=== PATIENT | male | born 1970 | race Caucasian/White ===

== ENCOUNTER 2018-02-04 08:36 | Emergency (ER) | payer BC ==
--- NOTE | 2018-02-04 09:00 | UC ---
General HPI - HPI Summary HPI Summary: This is chester Briceno documenting for attending Johnathan Rodriguez . This patient is a 47 year old M presenting to [facility] accompanied by his after his vein spasmed which caused him to become dizzy and diaphoretic. Pt states he was working on a watch when he got a spasm in his forearm near the antecubital fossa which caused his vein to swell. The patient rates the pain 0/ 10 in severity. Patient reports nausea and pallor. Patient denies CP and syncope. Pt states that he lost his peripheral vison and needed to sit down. All these sx resolved shortly after sitting down. Pt just returned from [place] and was [place] which has made his concerned that this could have effected him. She is also concerned for his heart because of the high stress environment he works in. - History of Current Complaint Chief Complaint: UCGeneralIllness Stated Complaint: ARM PAIN DIZZY Hx Obtained From: Patient Onset/Duration: Lasting Minutes, Resolved Timing: Intermittent Episodes Lasting: - a few minutes Onset Severity: Severe Current Severity: None Pain Intensity: 0 Associated Signs & Symptoms: Positive: Other - dizziness, diaphoreisis, and nausea - Allergy/Home Medications Allergies/Adverse Reactions: Allergies Allergy/AdvReac Type Severity Reaction Status Date / Time No Known Allergies Allergy Verified 02/04/18 08:49 PMH/Surg Hx/FS Hx/Imm Hx Previously Healthy: Yes Other History Of: Negative For: HIV, Anticoagulant Therapy - Surgical History Surgical History: None - Family History Known Family History: Negative: Diabetes, Blood Disorder - Social History Occupation: Employed Full-time - [employer] Lives: With Family - Alcohol Use: Weekly Alcohol Amount: once Substance Use Type: None Smoking Status (MU): Never Smoked Tobacco Type: eCigarettes Have You Smoked in the Last Year: No - Immunization History Most Recent Tetanus Shot: not certain Review of Systems Constitutional: Other - diaphoretic. Skin: Other - pallor Cardiovascular: Other - "vein swelling"- per patient Gastrointestinal: Nausea Musculoskeletal: Other: - muscle spasm Neurological: Other - dizziness All Other Systems Reviewed And Are Negative: Yes Physical Exam - Summary Physical Exam Summary: General: well-appearing, no pain distress Skin: warm, color reflects adequate perfusion, dry Head: normal Eyes: EOMI, COREY ENT: normal Neck: supple, nontender Respiratory: CTA, breath sounds present Cardiovascular: RRR Abdomen: soft, nontender Bowel: present Musculoskeletal: normal, strength/ROM intact Neurological: sensory/motor intact, A&O x3 Psychological: affect/mood appropriate Triage Information Reviewed: Yes Vital Signs: Initial Vital Signs Temp 97.6 F 02/04/18 08:47 Pulse 70 02/04/18 08:47 Resp 16 02/04/18 08:47 BP 111/69 02/04/18 08:47 Pulse Ox 100 02/04/18 08:47 Vital Signs Reviewed: Yes Diagnostics - EKG Cardiac Rate: NL - taken at 0904 at 62 bpm Cardiac Rhythm: Sinus: Normal, Other Rhythm: New - nonspecific intraventricular conduction delay Ectopy: None Re-Evaluation - Re-Evaluation First Eval Re-Evaluation Time: 09:38 Change: Unchanged Comment: I discussed the EKG and discharge with the patient. Course/Dx - Course Course Of Treatment: THE ARM EXAM IS NORMAL WITH NO SWELLING AND FROM. PROBABLE VASO VAGAL NEAR SYNCOPE AFTER RIGHT ARM MUSCLE SPASM. NO CHEST PAIN TODAY. F/U PMD; RECHECK SOONER IF ANY FURTHER SX. - Differential Dx - Multi-Symptom Provider Diagnoses: RIGHT ARM MUSCLE SPASM. NEAR SYNCOPE Discharge - Sign-Out/Discharge Documenting (check all that apply): Patient Departure - Discharge Plan Condition: Stable Disposition: HOME Patient Education Materials: Near Syncope (ED), Muscle Spasm (ED) Referrals: [facility] [Provider Group] Additional Instructions: FOLLOW UP WITH YOUR DOCTOR. GET RECHECKED FOR ANY WORSENING OF YOUR CONDITION; CHEST PAIN, YOU FEEL LIKE PASSING OUT, YOU FEEL ILL OR QUESTIONS OR CONCERNS. - Billing Disposition and Condition Condition: STABLE Disposition: Home Attestation Statement Scribe Attestation: This is chester Briceno documenting for attending Johnathan Rodriguez . User Type: Provider with [place] Provider Attestation: The documentation recorded by the [email or web address] accurately reflects the service I personally performed and the decisions made by me.
[2018-02-04 09:37] VITALS: BP 123/77
== END 2018-02-04 09:45 | disposition home or self-care (01) ==
LOC: UCEAST 08:36
DX: M62.838 Other muscle spasm (principal); R55 Syncope and collapse
CPT/HCPCS: 93005; 99212; G0463

== ENCOUNTER 2019-04-05 07:25 | Emergency (ER) | payer BC ==
[2019-04-05 07:36] VITALS: BP 121/83
--- NOTE | 2019-04-05 07:55 | UC ---
Throat Pain/Nasal Mack HPI - HPI Summary HPI Summary: 48 yo male presents with sinus complaint. He tells me that about 1.5 weeks ago he developed a sore throat, runny nose, dry cough, and sinus congestion. He has been taking sudafed and advil with good relief and his cough and sore throat have resolved, but his sinus pain/pressure/congestion have worsened. Green/ yellow mucus. Denies fever, chills, rash. - History of Current Complaint Chief Complaint: UCRespiratory Stated Complaint: SINUS ISSUE Time Seen by Provider: 04/05/19 07:54 Hx Obtained From: Patient Onset/Duration: Gradual Onset Severity: Mild Pain Intensity: 1 Pain Scale Used: 0-10 Numeric - Allergies/Home Medications Allergies/Adverse Reactions: Allergies Allergy/AdvReac Type Severity Reaction Status Date / Time No Known Allergies Allergy Verified 04/05/19 07:34 Home Medications: Home Medications Pseudoephedrine HCL ER TAB* [Sudafed 12 Hour*] 120 mg PO BID PRN 04/05/19 [ History Confirmed 04/05/19] PMH/Surg Hx/FS Hx/Imm Hx - Additional Past Medical History Additional PMH: None Other History Of: Negative For: HIV, Anticoagulant Therapy - Surgical History Surgical History: None - Family History Known Family History: Negative: Diabetes, Blood Disorder - Social History Occupation: Employed Full-time Lives: With Family Alcohol Use: Occasionally Alcohol Amount: once Substance Use Type: None Smoking Status (MU): Never Smoked Tobacco Type: eCigarettes Have You Smoked in the Last Year: No - Immunization History Most Recent Tetanus Shot: not certain Review of Systems All Other Systems Reviewed And Are Negative: No Constitutional: Positive: Negative Skin: Positive: Negative Eyes: Positive: Negative ENT: Positive: Sore Throat - resolved, Nasal Discharge, Sinus Congestion, Sinus Pain/Tenderness Respiratory: Positive: Cough - resolved Cardiovascular: Positive: Negative Gastrointestinal: Positive: Negative Neurological: Positive: Negative Psychological: Positive: Negative Physical Exam - Summary Physical Exam Summary: GENERAL: NAD. WDWN. No pain distress. SKIN: No rashes, sores, lesions, or open wounds. HEENT: Head: AT/NC Eyes: EOM intact. Conjunctiva clear without inflammation or discharge. Ears: Hearing grossly normal. TMs intact, no bulging, erythema, or edema. Nose: Nasal mucosa mildly swollen and erythematous with yellow/ clear discharge. TTP frontal sinus. Positive post nasal drip Throat: Posterior oropharynx without exudates, erythema, or tonsillar enlargement. Uvula midline. NECK: Supple. Nontender. No lymphadenopathy. CHEST: CTAB. No r/r/w. No accessory muscle use. Breathing comfortably and in no distress. CV: RRR. Pulses intact. NEURO: Alert. PSYCH: Age appropriate behavior. Triage Information Reviewed: Yes Vital Signs: Initial Vital Signs Temp 98.2 F 04/05/19 07:31 Pulse 85 04/05/19 07:31 Resp 16 04/05/19 07:31 BP 121/83 04/05/19 07:31 Pulse Ox 100 04/05/19 07:31 Vital Signs Reviewed: Yes Throat Pain/Nasal Course/Dx - Course Course Of Treatment: Sinusitis - Differential Dx/Diagnosis Provider Diagnosis: Sinusitis Discharge ED - Sign-Out/Discharge Documenting (check all that apply): Patient Departure All imaging exams completed and their final reports reviewed: No Studies - Discharge Plan Condition: Stable Disposition: HOME Prescriptions: Amoxicillin PO (*) [Amoxicillin 875 MG (*)] 875 mg PO BID #14 tab Patient Education Materials: Sinusitis (ED) Referrals: No Primary Care Phys,NOPCP [Primary Care Provider] - Additional Instructions: If you develop a fever, shortness of breath, chest pain, new or worsening symptoms - please call your PCP or go to the ED immediately. Continue your over the counter cold medications - Billing Disposition and Condition Condition: STABLE Disposition: Home
== END 2019-04-05 08:04 | disposition home or self-care (01) ==
LOC: UCEAST 07:25
DX: J32.9 Chronic sinusitis, unspecified (principal)
CPT/HCPCS: 99212; G0463